=== PATIENT | male | born 1935 | race Caucasian/White ===

== ENCOUNTER → 2017-04-02 | Outpatient (CLI) | payer OTHER ==
--- NOTE | 2017-04-02 12:47 | RADRPT ---
EXAM DATE/TIME: 04/02/2017 12:08 [place] COMPARISON: No previous studies available for comparison. INDICATIONS : Left leg swelling. MEDICAL HISTORY : Hypertension. Chemotherapy. Colon cancer. Afib. SURGICAL HISTORY : Stoma with reversal for colon cancer. ENCOUNTER: Initial ACUITY: 1 day PAIN SCORE: 0/10 LOCATION: Left leg. TECHNIQUE: Venous ultrasound of the leg was performed from the inguinal ligament to the proximal calf. Real-kimber e, color Doppler and spectral tracing, compression and augmentation techniques were used. FINDINGS: The entire SFV is incompletely compressible as is the posterior tibial and peroneal veins. On Doppler interrogation, there is preserved venous flow through both areas as well as some regional collateral circulation suggesting some degree of chronicity. Remaining portions of the deep venous system appea red widely patent. Central greater saphenous vein is patent as well. CONCLUSION: 1. Nonocclusive thrombus throughout the entire SFV as well as the peroneal and posterior tibial veins . 2. There appears to be some collateral venous flow in these areas suggesting some degree of chronicit yFior Braxton MD on April 02, 2017 at 12:39 Board Certified Radiologist. This report was verified electronically.
== END ==
LOC: HRAD 11:44
PROVIDERS: ATTEND Internal Medicine Hematology
DX: C20 Malignant neoplasm of rectum (principal); I82.90 Acute embolism and thrombosis of unspecified vein; M79.89 Other specified soft tissue disorders
CPT/HCPCS: 93971

== ENCOUNTER → 2017-04-06 | Outpatient (CLI) | payer OTHER ==
--- NOTE | 2017-04-06 13:20 | ECHRPT ---
Indication: AI CONCLUSIONS The left ventricular systolic function is normal with an estimated ejection fraction in the range of 55-60%. Mild concentric left ventricular hypertrophy. Doppler parameters are consistent with impaired left ventricular relaxtion (grade 1 diastolic dysfun ction). Moderate mitral annular calcification. Trace mitral valve regurgitation. Moderate aortic valve stenosis (Peak grad 46, Mean grad 24, Max Velo 340, ALDO 1.24). There is trace tricuspid valve regurgitation. BP: / HR: Rhythm: Sinus MEASUREMENTS (Male / Female) Normal Values Technical Quality:Good 2D ECHO LV Diastolic Diameter PLAX 4.4 cm 4.2 - 5.9 / 3.9 - 5.3 cm LV Systolic Diameter PLAX 3.4 cm IVS Diastolic Thickness 1.2 cm 0.6 - 1.0 / 0.6 - 0.9 cm LVPW Diastolic Thickness 0.8 cm 0.6 - 1.0 / 0.6 - 0.9 cm LV Relative Wall Thickness 0.4 LVOT Diameter 2.0 cm LA Systolic Diameter LX 3.4 cm 3.0 - 4.0 / 2.7 - 3.8 cm DOPPLER AV Peak Velocity 339.0 cm/s AV Peak Gradient 46.0 mmHg AV Mean Gradient 24.0 mmHg AV Velocity Time Integral 88.1 cm LVOT Peak Velocity 120.5 cm/s LVOT Peak Gradient 5.8 mmHg LVOT Velocity Time Integral 34.7 cm AV Area Cont Eq vti 1.2 cm AV Area Cont Eq pk 1.1 cm Mitral E Point Velocity 79.6 cm/s Mitral A Point Velocity 120.0 cm/s Mitral E to A Ratio 0.7 LV E' Lateral Velocity 7.8 cm/s Mitral E to LV E' Lateral Ratio 10.2 LV E' Septal Velocity 5.0 cm/s Mitral E to LV E' Septal Ratio 16.0 TR Peak Velocity 221.0 cm/s TR Peak Gradient 19.5 mmHg FINDINGS LEFT VENTRICLE Normal left ventricular size. Mild concentric left ventricular hypertrophy. The left ventricular systolic function is normal with an estimated ejection fraction in the range of 55-60%. Doppler parameters are consistent with impaired left ventricular relaxtion (grade 1 diastolic dysfun ction). RIGHT VENTRICLE Normal right ventricular size and systolic function. LEFT ATRIUM The left atrial size is normal. RIGHT ATRIUM The right atrial size is normal. ATRIAL SEPTUM The interatrial septum not well visualized. AORTA The aortic root and proximal ascending aorta are normal in size on limited imaging. MITRAL VALVE Moderate mitral annular calcification. Structurally normal mitral valve. Trace mitral valve regurgitation. No mitral valve stenosis. AORTIC VALVE Diffuse calcification of the aortic valve. Moderate aortic valve stenosis (Peak grad 46, Mean grad 24, Max Velo 340, ALDO 1.24) TRICUSPID VALVE Structurally normal tricuspid valve. There is trace tricuspid valve regurgitation. PULMONARY VALVE The pulmonary valve is not well visualized. VESSELS The inferior vena cava is normal in size. PERICARDIUM No pericardial effusion. Ernst Vigil DO (Electronically Signed) Final Date:06 April 2017 13:19
== END ==
LOC: HECH 08:33
PROVIDERS: ATTEND Internal Medicine Hematology
DX: C20 Malignant neoplasm of rectum (principal); R06.02 Shortness of breath; R53.83 Other fatigue
CPT/HCPCS: 93306

== ENCOUNTER 2018-06-24 12:11 | Inpatient (IN) ==
--- NOTE | 2018-06-24 13:41 | XR ---
EXAM DATE: 06/24/2018 12:00 AM EDT AGE/SEX: 83 years / Male INDICATIONS: Evaluate for pneumonia, pneumothorax or communicable disease. Pre op hernia repair and ileostomy. CLINICAL DATA: This is the patient's initial encounter. Patient reports that signs and symptoms have been present for 1 day and indicates a pain score of 0/10. MEDICAL/SURGICAL HISTORY: Hypertension. Carcinoma, colon. Chemotherapy. Afib. . Stoma with re versal for colon cancer. COMPARISON: . FINDINGS: Left subclavian [id number] with tip in the cavoatrial junction. No significant focal pleural or pa renchymal opacities. The cardiomediastinal contours are unremarkable. Osseous structures are intact. CONCLUSION: 1. No acute cardiopulmonary disease. Electronically signed by: Sp Knutson MD 06/24/2018 1:40 PM EDT
[2018-06-24] MEDS ORDERED: Chlorhexidine Gluconate 2% 1 Pack (2 Cloths) TOPICAL SCH (13:42)
[2018-06-24] MEDS ORDERED: Metoprolol Tartrate 25 MG Tablet PO SCH (13:42)
[2018-06-24] MEDS ORDERED: Dextrose 5%/NaCl 0.9% Inj 1,000 ML IV.SIG SCH (13:45)
[2018-06-24 13:49] LABS: Baso # (Auto) 0.1 th/mm3 (0.0-0.2); Eos # (Auto) 0.2 th/mm3 (0.0-0.4); Eos % (Auto) 3.7 % (0.0-4.0); Hemoglobin 9.4 gm/dL (13.0-17.0); Lymph # (Auto) 0.5 th/mm3 (1.0-4.8); Lymph % (Auto) 10.7 % (9.0-44.0); Mean Corpuscular HGB Conc 32.3 % (32.0-36.0); Mean Corpuscular Volume 108.2 fL (80.0-100.0); Mean Platelet Volume 8.6 fL (7.0-11.0); Mono # (Auto) 0.5 th/mm3 (0.0-0.9); Mono % (Auto) 9.8 % (0.0-8.0); Neut # (Auto) 3.8 th/mm3 (1.8-7.7); Neut % (Auto) 74.8 % (16.0-70.0); Platelet Count 123 th/mm3 (150-450); Red Blood Count 2.68 mil/mm3 (4.50-5.90); Red Cell Distribution Width 15.6 % (11.6-17.2)
[2018-06-24 13:50] LABS: Bilirubin,Urine Negative (Negative); Clarity,Urine Clear (Clear); Color,Urine Yellow (Yellw/Straw); Glucose,Urine (UA) Negative (Negative); Leukocyte Esterase,Urine Negative (Negative); Nitrite,Urine Negative (Negative)
[2018-06-24] MEDS ORDERED: Heparin Central Flush 100 UNIT/ML 5 ML Vial IV.FLUSH PRN ×2 (13:56)
[2018-06-24 13:58] LABS: Activated Partial Thrombo Time 57.4 sec (24.3-30.1); INR 1.2 Ratio; Prothrombin Time 11.7 sec (9.8-11.6)
[2018-06-24] MEDS ORDERED: Sodium Chlor 0.9% Inj 500 ML IV.SIG SCH (14:00)
[2018-06-24 14:02] LABS: Albumin 2.7 g/dL (3.4-5.0); Anion Gap 5 meq/L (5-15); Aspartate Aminotransferase 44 U/L (15-37); Blood Urea Nitrogen 28 mg/dL (7-18); Calcium 8.4 mg/dL (8.5-10.1); Carbon Dioxide 22.6 meq/L (21.0-32.0); Chloride 114 meq/L (98-107); Glomerular Filtration Rate 35 mL/min (>89); Glucose,Random 90 mg/dL (74-106); Potassium 4.7 meq/L (3.5-5.1); Sodium 142 meq/L (136-145)
[2018-06-24 14:03] LABS: Alanine Aminotransferase 32 U/L (12-78)
[2018-06-24 14:05] LABS: Alkaline Phosphatase 310 U/L (45-117); Total Protein 6.9 g/dL (6.4-8.2)
[2018-06-24] MEDS ORDERED: Sugammadex Inj 200 MG/2 ML Vial IV.PUSH ONE (17:05)
[2018-06-24] MEDS ORDERED: Potassium Chlor 40 mEq Premix 40 MEQ/100 ML PIGGYBACK IV.SIG PRN (17:20)
[2018-06-24] MEDS ORDERED: Potassium Chlor 20 mEq Premix 20 MEQ/100 ML PIGGYBACK IV.SIG PRN (17:20)
[2018-06-24] MEDS ORDERED: Zolpidem Tartrate 5 MG Tablet PO PRN (17:25)
[2018-06-24] MEDS ORDERED: Naloxone Inj 0.4 MG/ML Vial IV.PUSH PRN (17:35)
[2018-06-24] MEDS ORDERED: fentaNYL Citrate Inj 100 MCG/2 ML Ampul ONE ×2 (17:42→18:50)
[2018-06-24] MEDS ORDERED: KCL 20 mEq/D5W/LR Inj 1,000 ML ONE (17:46)
[2018-06-24] MEDS ORDERED: Morphine Inj 30 MG/30 ML PCA.VIAL PCA ONE (17:47)
[2018-06-24] MEDS ORDERED: *morphine SULFATE 10 MG/ML PERIprocedure ONLY ONE ×2 (17:49→18:07)
[2018-06-24 17:53] LABS: Baso # (Auto) 0.1 th/mm3 (0.0-0.2); Eos # (Auto) 0.2 th/mm3 (0.0-0.4); Eos % (Auto) 2.9 % (0.0-4.0); Hematocrit 31.1 % (39.0-51.0); Hemoglobin 10.1 gm/dL (13.0-17.0); Lymph # (Auto) 0.7 th/mm3 (1.0-4.8); Lymph % (Auto) 8.5 % (9.0-44.0); Mean Corpuscular HGB Conc 32.5 % (32.0-36.0); Mean Corpuscular Hemoglobin 34.9 pg (27.0-34.0); Mean Corpuscular Volume 107.3 fL (80.0-100.0); Mean Platelet Volume 8.6 fL (7.0-11.0); Mono # (Auto) 0.5 th/mm3 (0.0-0.9); Neut # (Auto) 6.3 th/mm3 (1.8-7.7); Neut % (Auto) 80.6 % (16.0-70.0); Platelet Count 162 th/mm3 (150-450); Red Cell Distribution Width 15.6 % (11.6-17.2); White Blood Count 7.8 th/mm3 (4.0-11.0)
[2018-06-24] MEDS ORDERED: KCL 20 mEq/D5W/LR Inj 1,000 ML IV.CONT SCH (18:00)
--- NOTE | 2018-06-24 18:12 | MP ---
cc: Ronaldo Donohue MD,Alex Dubon MD DATE OF OPERATION: 06/24/2018 PREOPERATIVE DIAGNOSES: 1. 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 2. Metastatic colon cancer. 3. Right-sided ventral hernia. POSTOPERATIVE DIAGNOSES: 1. Metastatic colon cancer in the liver. 2. Right-sided ventral hernia. 3. 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 OPERATIVE PROCEDURE: 1. Exploratory laparotomy with lysis of adhesions. 2. Fully diverting loop ileostomy. 3. Repair of right-sided ventral hernia. ANESTHESIA: General endotracheal. SURGEON: Ronaldo Donohue MD CITRUS PICKER: Edgardo Ackerman MD ESTIMATED BLOOD LOSS: 25 mL. OPERATIVE FINDINGS: This patient had a previous rectal cancer resection done in [place] in 2013 with a low anterior resection, diverting ileostomy and then closure of his ileostomy. He has since developed intractable diarrhea due to a narrowed sigmoid colon and rectum, probably due to his postoperative radiation. 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 His bowel habits are unacceptable to the patient and he requested a diversion. He also has a right-sided ventral hernia. At surgery, he was found to have a good sized, probably 5 or 6 cm, hepatic metastasis in the right lobe. He also was found to have adhesions, interloop and a small bowel, into the pelvis. Some of those adhesions were left to the area of the anastomosis, but others were mobilized to facilitate creating the diverting loop ileostomy. The cecum and terminal ileum were identified and the previous ileostomy closure site was identified. The new ileostomy site was chosen just above this site and was brought out through the left lower quadrant rectus muscle, rather than the right lower quadrant since he had a ventral hernia at his previous ileostomy site. Repair of the ventral hernia was done on the inside, closing his posterior rectus sheath after excising the sac. A fully diverting loop ileostomy was done as well as lysis of adhesions. OPERATIVE TECHNIQUE: The patient was placed on the table in the supine position. After adequate general endotracheal anesthesia, the abdomen was prepped and draped in the usual manner. A midline incision was made at his previous midline incision and taken just above the umbilicus. Small bowel adhesion to the lower midline incision was dissected free from the peritoneum using electrocautery. The remainder of the abdominal adhesions were mobilized as well. There was no omentum visible in the abdomen. The transverse colon was localized, as was the ascending colon and eventually the cecum and the appendix. The terminal ileum was identified and the previous small bowel closure of his ileostomy was identified. Just proximal to this, an opening was made in the small bowel mesentery and the distal portion of the ileum was closed with a TX 30 stapler. Next, a stoma site was made in the left lower quadrant in the lateral portion of the rectus muscle and the ileum was brought out through the stoma site. The right-sided ventral hernia was identified and the sac from the hernia was excised and then the hernia was closed by closing the posterior rectus sheath with a running #1 PDS suture. Once this was done, the abdominal contents were replaced in the abdominal cavity in an environmental services specialist manner and the abdominal incision was closed in a single layer using a double-stranded #1 PDS. Subcutaneous tissue was irrigated thoroughly with a liter of saline solution and aspirated dry and the skin was closed with running 3-0 Vicryl subcuticular suture. The ileostomy was matured with interrupted 3-0 Vicryl sutures in an end-loop manner and a 45 mm appliance was placed. Dressings were applied. Sponge, needle and instrument counts were reported as correct. Estimated blood loss was 25 mL. The patient tolerated the procedure well and left the operating room in good condition. MD SHERRELL Ochoa/sherie , 05:44 PM , 05:55 PM
[2018-06-24 18:14] LABS: Carbon Dioxide 21.7 meq/L (21.0-32.0); Potassium 5.2 meq/L (3.5-5.1)
[2018-06-24] MEDS: Morphine Inj 30 MG/30 ML PCA.VIAL PCA PRN (18:19)
[2018-06-24] MEDS ORDERED: *HYDROmorphone PF Inj 1 MG/ML Ampul PERIprocedural Use ONLY ONE (18:36)
[2018-06-24] MEDS: Dextrose 5%/NaCl 0.9% Inj 1,000 ML IV.SIG SCH (21:52)
[2018-06-25 05:14] LABS: Baso % (Auto) 0.4 % (0.0-2.0); Eos % (Auto) 0.1 % (0.0-4.0); Hematocrit 33.8 % (39.0-51.0); Hemoglobin 10.8 gm/dL (13.0-17.0); Lymph # (Auto) 0.4 th/mm3 (1.0-4.8); Lymph % (Auto) 3.8 % (9.0-44.0); Mean Corpuscular HGB Conc 31.9 % (32.0-36.0); Mean Corpuscular Hemoglobin 34.5 pg (27.0-34.0); Mean Corpuscular Volume 108.2 fL (80.0-100.0); Mean Platelet Volume 8.2 fL (7.0-11.0); Mono # (Auto) 0.6 th/mm3 (0.0-0.9); Mono % (Auto) 4.8 % (0.0-8.0); Neut # (Auto) 10.3 th/mm3 (1.8-7.7); Neut % (Auto) 90.9 % (16.0-70.0); Platelet Count 170 th/mm3 (150-450); Red Blood Count 3.13 mil/mm3 (4.50-5.90); Red Cell Distribution Width 15.6 % (11.6-17.2); White Blood Count 11.4 th/mm3 (4.0-11.0)
[2018-06-25 05:40] LABS: Calcium 8.2 mg/dL (8.5-10.1); Carbon Dioxide 23.7 meq/L (21.0-32.0); Potassium 4.8 meq/L (3.5-5.1)
[2018-06-25] MEDS: Dextrose 5%/NaCl 0.9% Inj 1,000 ML IV.SIG SCH ×2 (06:19→14:56)
[2018-06-25] MEDS: Morphine Inj 30 MG/30 ML PCA.VIAL PCA PRN ×2 (06:21→18:11)
[2018-06-25] MEDS: Pantoprazole Inj 40 MG Vial IV.PUSH SCH (08:29)
[2018-06-25] MEDS: amLODIPine 5 MG Tablet PO SCH (08:30)
[2018-06-25] MEDS: Allopurinol 300 MG Tablet PO SCH (08:30)
--- NOTE | 2018-06-25 13:14 | P.PNWCN ---
Wound Care Nurse Consult Description: Consult for New Ostomy Teaching Ostomy Management LLQ ileostomy per Dr Donohue Communicated with: Patient Patient , pt son, and daughter in law at bedside RN Recommendation: Empty pouch of effluent when 1/3-1/2 full Change wafer (2 1/4") every 3-5 days and PRN for leaks. PLEASE DO NOT REINFORCE FOR LEAKS. REMOVE AND REPLACE. Assess stoma for color and output. Additional information: Patient seen in [facility] for ostomy assessment, ostomy measurement, and teaching. Bowel Diversion Stoma - Bowel Stoma Left Lower Abdomen Ileostomy Stoma Edema: Yes Stoma Diameter: 38 (mm) Stoma Appearance: Protruding, Round (pink, moist, not functioning at this time) Loop Supporting Uli: No Collection Device: Two-piece, Moldable Wafer Drainage Description: Blood-Tinged (post op drainage only) Wafer Size: 1 3/4 Moldable 45mm (which is too small for the stoma; patient should be in a size 2 1/4" wafer with stoma size 1 1/2") Manuela-Stomal Surrounding Tissue Sensation Description: No Symptoms - Additional Information Additional Information: Patient has had an ileostomy previously. Patient needs reinforcement of teaching. Over the weekend, and as soon as ordered, patient should begin ambulating and emptying pouch on his own. Plan on changing out appliance on Thursday for reinforcement of teaching with skin care. Patient gave verbal consent for starter kit to be sent out via [facility] 2 day air. Script left on chart for supplies. Supplies were ordered for patient to go home with at discharge.
--- NOTE | 2018-06-25 17:35 | ECG ---
Date Performed: 06/24/2018 Time Performed: 13:22:59 PTAGE: 83 years EKG: Sinus rhythm BORDERLINE LEFT AXIS DEVIATION MINIMAL VOLTAGE CRITERIA FOR LVH, CONSIDER NORMAL VARIANT BORDERLINE ECG NO PREVIOUS TRACING DOCTOR: Bay Michele Interpretating Date/Time 06/25/2018 17:34:57
--- NOTE | 2018-06-25 18:08 | P.PNCS ---
Subjective Colorectal Surgery Post Op Day #: 1 Interval history: Mild Nausea,no vomiting. Has not been OOB. Explained importance Objective Result Diagrams: 06/25/18 04:00 06/25/18 04:00 Objective Remarks: Abd: flat,soft,stoma pink Assessment and Plan - Plan OOB IVs to 75 FLD Consult PT
[2018-06-25] MEDS: Dextrose 5%/Lactated Ringer's 1,000 ML IV.CONT SCH (18:29)
[2018-06-26 04:49] LABS: Baso % (Auto) 0.3 % (0.0-2.0); Eos % (Auto) 0.2 % (0.0-4.0); Hematocrit 30.7 % (39.0-51.0); Hemoglobin 10.2 gm/dL (13.0-17.0); Lymph # (Auto) 0.5 th/mm3 (1.0-4.8); Lymph % (Auto) 4.5 % (9.0-44.0); Mean Corpuscular HGB Conc 33.4 % (32.0-36.0); Mean Corpuscular Hemoglobin 35.7 pg (27.0-34.0); Mono # (Auto) 0.8 th/mm3 (0.0-0.9); Mono % (Auto) 7.4 % (0.0-8.0); Neut # (Auto) 9.6 th/mm3 (1.8-7.7); Neut % (Auto) 87.6 % (16.0-70.0); Platelet Count 142 th/mm3 (150-450); Red Blood Count 2.87 mil/mm3 (4.50-5.90); Red Cell Distribution Width 15.7 % (11.6-17.2); White Blood Count 10.9 th/mm3 (4.0-11.0)
[2018-06-26 05:09] LABS: Carbon Dioxide 23.6 meq/L (21.0-32.0); Potassium 4.4 meq/L (3.5-5.1)
[2018-06-26] MEDS: Morphine Inj 30 MG/30 ML PCA.VIAL PCA PRN (06:05)
[2018-06-26] MEDS: Dextrose 5%/Lactated Ringer's 1,000 ML IV.CONT SCH ×2 (06:36→20:32)
[2018-06-26] MEDS: amLODIPine 5 MG Tablet PO SCH (08:01)
[2018-06-26] MEDS: Pantoprazole Inj 40 MG Vial IV.PUSH SCH (08:02)
[2018-06-26] MEDS: Allopurinol 300 MG Tablet PO SCH (08:02)
--- NOTE | 2018-06-26 11:57 | P.PNCS ---
Subjective Colorectal Surgery Post Op Day #: 2 Interval history: Does not want colunga out due to urinary frequency at home. PT in room getting ready yo get him OOB Objective Result Diagrams: 06/26/18 04:00 06/26/18 04:00 Objective Remarks: Abd: flat,soft,stoma pink, wound clean but sero sanguinous drainage. D/W RN dressing changes and change Ileostomy bag if leaking. Assessment and Plan - Plan OOB IVs to 50 D/C colunga D/c tele Regular diet Dressing changes
--- NOTE | 2018-06-27 08:03 | P.PNCS ---
Subjective Colorectal Surgery Post Op Day #: 3 Interval history: No N or V. Stooling Less pain Objective Result Diagrams: 06/26/18 04:00 06/26/18 04:00 Objective Remarks: Abd: flat,soft,stoma pink, wound clean. D/W RN dressing changes and change Ileostomy bag if leaking. Assessment and Plan - Plan OOB IVs to 50 Regular diet
[2018-06-27] MEDS: Pantoprazole Inj 40 MG Vial IV.PUSH SCH (09:18)
[2018-06-27] MEDS: amLODIPine 5 MG Tablet PO SCH (09:18)
[2018-06-27] MEDS: Allopurinol 300 MG Tablet PO SCH (09:19)
[2018-06-27] MEDS: Dextrose 5%/Lactated Ringer's 1,000 ML IV.CONT SCH (17:04)
[2018-06-28] MEDS: Pantoprazole Inj 40 MG Vial IV.PUSH SCH (08:43)
[2018-06-28] MEDS: amLODIPine 5 MG Tablet PO SCH (08:43)
[2018-06-28] MEDS: Allopurinol 300 MG Tablet PO SCH (08:43)
[2018-06-28 10:00] VITALS: RESP 18
--- NOTE | 2018-06-28 12:13 | P.DCO ---
- Physical Therapy Order: Evaluate and treat - Home Health Nursing Order: Medical education, Signs/symptoms of disease process, Wound care and dressing changes, Nursing assessment with vital signs, Patterson catheter maintenance Instructions: Pt with new Ileostomy teaching and supplies. Pt with condom cath - Case Management Consult Yes - Certification I have seen patient Harshal Wallace on 06/28/18. My clinical findings support the need for the requested home health care services because: Limited mobility due to disease progression, Deconditioned with increased weakness, Medication compliance is questionable, Limited ability to care for self, Need for psychosocial assistance, High risk of falls I certify that my clinical findings support that this patient is homebound because: Post-op weakness, Impaired cognitive ability/safety, Unsteady gait/balance, Unsafe to leave home unassisted, Need for psychosocial assistance, Unable to use public transportation
--- NOTE | 2018-06-28 14:03 | P.PNWCN ---
Wound Care Nurse Consult Description: Consult for New Ostomy Teaching Ostomy Management LLQ ileostomy per Dr Donohue Communicated with: Patient Recommendation: Empty pouch of effluent when 1/3-1/2 full Change wafer (2 1/4") every 3-5 days and PRN for leaks. PLEASE DO NOT REINFORCE FOR LEAKS. REMOVE AND REPLACE. Assess stoma for color and output. Additional information: Patient seen on for ostomy assessment, teaching, and appliance change using Activ life cut to fit one piece with clip per patient request. Bowel Diversion Stoma - Bowel Stoma Left Lower Abdomen Stoma Edema: Yes Stoma Diameter: 38 Stoma Appearance: Protruding (red, moist, functioning), Round Loop Supporting Uli: No Collection Device: One-piece, Cut to Fit Wafer Drainage Description: Soft, Liquid, Brown Wafer Size: 2 1/4 Cut to Fit 57mm Stoma Care: Pouch and Wafer Changed, Skin Care Manuela-Stomal Skin Appearance: Intact Manuela-Stomal Surrounding Tissue Sensation Description: No Symptoms - Additional Information Additional Information: Patient was up to chair upon commercial underwriter arrival. Patient had questions regarding his ileostomy that were answered at this time. Patient requested that he have the one piece with the clip closure that he used previously with his last ileostomy ~4 years ago. Reinforcement of teaching was given. Ostomy appliance was removed using adhesive remover wipes. Stoma was measured (1 1/2"). Peristomal skin was cleansed with warm water only and allowed to air dry. Cavilon skin barrier film was used in preparation for the new wafer. One piece transparent pouch was cut to fit stoma size and placed by commercial underwriter. Clip was placed on the end of the pouch. Patient asked commercial underwriter to show him how to place the clip again for reinforcement. Script was left on chart for supplies. New supplies were ordered for patient to go home with at discharge. Patient seems to be more comfortable with the one piece cut to fit and clip closure. Starter kit was delivered to patient home.
[2018-06-28 15:14] VITALS: BP 161/74; PULSE 64; TEMP 98.3; O2SAT 96
--- NOTE | 2018-07-08 23:50 | MD ---
cc: Ronaldo Donohue MD DATE OF DISCHARGE: 06/28/2018 ADMITTING DIAGNOSES: 1. 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 2. Metastatic colon cancer. 3. Right-sided ventral hernia. DISCHARGE DIAGNOSES: 1. Metastatic colon cancer to the liver. 2. Right-sided ventral hernia. 3. 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 OPERATIVE PROCEDURE: On 06/24/2018, exploratory laparotomy with lysis of adhesions, fully diverting loop ileostomy and repair of right-sided ventral hernia. HISTORY OF PRESENT ILLNESS: This patient had a previous rectal cancer resection done in [place] in 2013 with low anterior resection. Diverting ileostomy was done and then closure of his ileostomy was done. Since that, he developed intractable diarrhea due to a narrowed sigmoid colon and rectum, probably due to postoperative radiation. 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 His bowel habits were unacceptable to the patient and he requested diversion. He also had a right-sided ventral hernia, which he requested repair. LABORATORY DATA: There was no pathology specimen removed at the time of surgery. HOSPITAL COURSE: The patient was admitted to the hospital and taken to the operating room on 06/24/2018. At surgery, he was found to have a good size 5 or 6 cm hepatic metastasis in the right lobe. He was also found to have adhesions interloop and small bowel into the pelvis. Some of these adhesions were left in the area of the anastomosis. Others were mobilized to facilitate creating the diverting loop ileostomy. The cecum and terminal ileum were identified from a previous ileostomy closure site. The new ileostomy site was chosen just above the old ileostomy site and brought out through a left lower quadrant stoma site. HOSPITAL COURSE: The patient was admitted to the hospital on 06/24/2018 and underwent this laparotomy with ileostomy diversion. On the first postoperative day, he was started on clear liquid diet. On the second postoperative day, he was started on a full liquid diet. On the third postoperative day, he was started on a regular diet. He was discharged from the hospital on postoperative day #4 in good condition. He was instructed to do no driving for 2 weeks, do no heavy lifting for 6 weeks and to call me with any problems. He was instructed with home health care for ileostomy teaching and supplies. He was instructed to follow up with me in the office in 2 weeks' time. Ronaldo Donohue MD JPATRIA/sv , 04:51 PM , 04:59 PM
== END 2018-06-28 15:33 | disposition home health service (06) ==
LOC: HSDI 12:11 → HCPC 18:57
PROVIDERS: ADMIT Colon & Rectal Surgery; ATTEND Colon & Rectal Surgery